=== PATIENT | female | born 1940 | race Caucasian/White ===

== ENCOUNTER 2018-03-13 17:40 | Inpatient (IN) | payer MEDICARE, MEDICAID ==
[~2018-03-13] VITALS: Ht 160 cm; Wt 62.5 kg
[~2018-03-13 17:40] MED LIST: ACETAMINOPHEN-1 EAC1 PO; ARICEPT 5 MG TAB5 MG PO; CALCIUM 500 +1 EAC5 PO; EPITOL200 MG PO; REMERON15 MG PO; VITAMIN D2000 UNIT PO
[2018-03-13 17:42] VITALS: BP 113/87
[2018-03-13 18:43] LABS: HEMATOCRIT 34.4 % (37.0-47.0); HEMOGLOBIN 11.5 gm/dL (12.0-15.0); MCH 32.1 pg (26.0-34.0); MCHC 33.5 g/dL (28.0-37.0); MCV 95.8 fL (80.0-100.0); MPV 8.6 fl. (7.2-11.1); NUCLEATED RBCS 0 /100WBC; PLATELET COUNT* 292 thou/uL (150-400); RBC 3.59 mil/uL (4.20-5.00); WBC 18.5 thou/uL (4.0-11.0)
[2018-03-13 18:52] LABS: ANION GAP 8 mmol/L (7-16); BUN 18 mg/dL (7-18); CALCIUM 8.7 mg/dL (8.5-10.1); CHLORIDE 104 mmol/L (98-107); CO2 29 mmol/L (21-32); GLUCOSE 136 mg/dL (70-99); INR 1.1; POTASSIUM 3.5 mmol/L (3.5-5.1); SODIUM 141 mmol/L (136-145)
[2018-03-13 19:02] LABS: ALBUMIN 2.8 g/dL (3.4-5.0); ALKALINE PHOSPHATASE 119 U/L (46-116); LIPASE 50 U/L (73-393); NT-PRO BRAIN NAT PEPTIDE 1622 pg/mL (<300); SGOT 17 U/L (15-37); SGPT 12 U/L (30-65); TOTAL BILIRUBIN 0.5 mg/dL (<0.1-1.0); TOTAL PROTEIN 7.8 g/dL (6.4-8.2); TROPONIN-I LEVEL <0.06 ng/mL (<0.06)
[2018-03-13 19:05] LABS: ABSOLUTE LYMPHOCYTES 0.6 thou/uL (0.8-5.3); ABSOLUTE NEUTROPHILS 17.9 thou/uL (1.6-8.1); ATYPICAL LYMPHS 1 %; PLATELET ESTIMATE ADEQUATE
[2018-03-13 19:11] LABS: INFLUENZA A ANTIGEN None Detected (None Detect); INFLUENZA B ANTIGEN None Detected (None Detect)
[2018-03-13 19:32] LABS: URINE BLOOD NEGATIVE (Negative); URINE CLARITY CLEAR; URINE COLOR YELLOW; URINE GLUCOSE-RANDOM NEGATIVE (Negative); URINE KETONES NEGATIVE (Negative); URINE LEUKOCYTES-REFLEX NEGATIVE (Negative); URINE NITRITE-REFLEX NEGATIVE (Negative); URINE PROTEIN TRACE (Negative); URINE SPECIFIC GRAVITY 1.025 (1.005-1.030); URINE UROBILINOGEN 0.2 E.U./dl (0.2-1.0)
[2018-03-13 19:46] LABS: ICTOTEST (BILI CONFIRMATORY) Negative (Negative); URINE BILIRUBIN 2+ (Negative)
[2018-03-13] MEDS ORDERED: CARBAMAZEPINE200 M2 PO (20:00)
[2018-03-13] MEDS ORDERED: ARICEPT 5 MG TAB5 MG PO (20:01)
[2018-03-13] MEDS ORDERED: VITAMIN B-1100 M1 (20:02)
[2018-03-13] MEDS ORDERED: TYLENOL EXTRA500 MG (20:02)
[2018-03-13] MEDS ORDERED: ALENDRONATE SOD35 MG (20:02)
[2018-03-13] MEDS ORDERED: OMEPRAZOLE 20 M20 M1 (20:03)
[2018-03-13] MEDS ORDERED: SEROQUEL 25 MG25 M1 (20:03)
[2018-03-13] MEDS ORDERED: ENSURE PLUS237 ML (20:03)
[2018-03-13] MEDS ORDERED: MELATONIN3 MG (20:04)
[2018-03-13] MEDS ORDERED: ROBITUSSIN LON118 ML (20:04)
[2018-03-13] MEDS ORDERED: TUMS (20:04)
[2018-03-13] MEDS ORDERED: ATIVAN0.5 MG (20:05)
[2018-03-13] MEDS ORDERED: CELEXA20 MG (20:05)
[2018-03-13] MEDS ORDERED: IPRAT-ALBUT 0.5-3 ML (20:06)
[2018-03-13] MEDS ORDERED: KLOR-CON 1010 MEQ (20:06)
[2018-03-13 21:30] VITALS: BP 164/80
[2018-03-13 22:05] VITALS: BP 153/52
[2018-03-13 23:56] LABS: PHOSPHORUS* 2.8 mg/dL (2.5-4.9)
[2018-03-14 04:00] VITALS: BP 106/52
--- NOTE | 2018-03-14 05:07 | NUR ---
ASSUMED CARE OF PT AT 2140. PT IS CONFUSED. PT IS ALSO NONVERBAL. PT IS SCORING FOR SEPSIS. NOTIFIED. PT RECIEVING ANTIBIOTICS. NO SIGNS OF PAIN. PT RECIEVED TYLENOL FOR PAIN. PT IS IN SINUS RYTHM ON THE TELEMETRY. PT IS RESTING COMFORTABLY IN BED. RESPIRATIONS ARE EVEN AND NONLABORED. WILL CONTINUE TO MONITOR PT.
[2018-03-14 08:00] VITALS: BP 107/63
--- NOTE | 2018-03-14 09:53 | NUR ---
ORDERS RECEIVED FOR EVAL AND TREAT. PT IS RESIDENT OF LTC AT [facility]. PT IS NON VERBAL. PT WITH SEVERE DEMENTIA. PT IS A FULL CARE PATIENT AT THE [facility] REQUIRING FULL ASSIST FOR ALL ADLS. PT IS UNABLE TO FOLLOW ANY COMMANDS. UPON THERAPY ATTEMPTING EVAL PT WAS UNABLE TO FOLLOW ONE STEP COMMANDS, VOCALIZATIONS WERE ONLY NON SENSE WORDS AND BABBLES. PT COULD NOT ENGAGE IN MEANINGFUL ACTIVITY. DUE TO PLOF BEING DEPENDENT AND SEVERE DEMENTIA NO SKILLED OT IS CURRENTLY INDICATED AND PT IS UNABLE TO PARTICIPATE IN COMPLETE EVALUATION SHE IS DEPENDENT FOR SELF CARES. PT IS CURRENTLY AT BASELINE FUNCTION FOR ADLS.
--- NOTE | 2018-03-14 10:46 | EKG ---
[place] [address] ELECTROCARDIOGRAM REPORT Name: KODY SHEFFIELD Room: [address] ADM IN .R.#: [id number] Admission: 03/13/18 Attend Phys: Jessica Bull MD Discharge: Date of : 36 Report #: [id number] THIS REPORT FOR: //name// [facility] ED Test Date: 2018-03-13 Test Time: 17:57:18 Pat Name: KODY SHEFFIELD Department: Room: [facility] Gender: F Ad Operations Associate: MS : 1940 Requested By: Chao Perez Order Number: [id number] MD: Artis Mtz Measurements Intervals [place] Rate: 99 P: 49 TN: 120 QRS: 73 QRSD: 83 T: 58 QT: 349 QTc: 448 Interpretive Statements Sinus rhythm Artifact in lead(s) I,III,aVL,aVF,V1,V2 Compared to ECG 11/21/2015 16:57:17 No significant changes Electronically Signed On 03-14-2018 10:46:33 DEALER ACCOUNTS INVESTIGATOR by Artis Mtz [email or web address] <ELECTRONICALLY SIGNED> By: Artis Mtz MD, FACC 03/14/18 1046 1757 1757 Artis Mtz MD, [facility] /EPI
[2018-03-14 11:34] VITALS: BP 82/60
--- NOTE | 2018-03-14 13:44 | NUR ---
PT SPOKE WITH SON WHO WAS PRESENT IN ROOM WITH PATIENT; PROVIDED PT WITH INFORMATION REGARDING PT FUNCTIONAL STATUS SECONDARY TO PT NON VERBAL WITH SEVERE DEMENTIA; PT UNABLE TO FOLLOW SIMPLE COMMANDS; PT WAS SPEAKING FRAGMENTED WORDS AND STATEMENTS WHILE HOLDING A BABY DOLL; SON STATES PT IS DEPENDENT WITH ALL ASPECTS OF MOBILITY; PT REQUIRES A SETLLA LIFT FOR TRANSFERS OOB TO WHEELCHAIR IN WHICH SHE IS UNABLE TO MANAGE HERSELF AND IS PUSHED THROUGH FACILITY; SON STATES PT CAN GET AGITATED OR UPSET AT TIMES WITH NEW ENVIRONMENTS AND IS UNABE TO FOLLOW DIRECTIONS; PT ED PT SON ON PT ROLE IN HOSPITAL SETTING; PT UNABLE TO PARTICIPATE IN ATTEMPTED PT EVALUATION.
--- NOTE | 2018-03-14 14:31 | NUR ---
Pt has severe dementia and is non verbal. LTC resident at [facility] and can return at [facility]. Pt is total care, requires a geri for transfers. Pt [place]. Goal is to return to [facility] at [place], following.
[2018-03-14 16:00] VITALS: BP 150/59
--- NOTE | 2018-03-14 19:21 | NUR ---
I ASSUMED CARE OF THE PATIENT AT 0700. SHE IS ALERT AND ORIENTED X4 AND IS BEDFAST. BED IS IN THE LOW LOCKED POSITION AND CALL LIGHT IS IN REACH. HOURLY ROUNDING WAS COMPLETED AND PATIENT NEEDS WERE MET. PAIN IS DENIED. PATIENT HAD SOME ATIVAN TO HELP WITH AGGITATION. SHE HAS BEEN ' HER BABY' ALL DAY. MRSA SWAB WAS COLLECTED AND SENT TO LAB. SHE WAS TURNED EVERY 2 HOURS. DEL CID WAS PLACED AFTER SHE WAS BLADDER SCANNED AND HAD RETENTION. SHE TAKES HER OXYGEN OFF AND IT NEEDS TO BE PUT BACK ON MULTIPLE TIMES. WILL CONTINUE TO MONITOR.
[2018-03-14 23:11] VITALS: BP 115/50; BP 138/53
[2018-03-15] VITALS: BP 162/52
--- NOTE | 2018-03-15 02:03 | NUR ---
ASSUMED CARE OF PT AT 1900. PT IS CONFUSED. VSS. PERRLA. NO SIGNS OF PAIN. TEMP IS SLIGHTLY ELEVATED. PT IS IN SINUS RYTHM ON THE TELEMETRY. PT IS A Q2 TURN. PT IS SLEEPING QUIETLY IN BED. RESPIRATIONS ARE EVEN AND NONLABORED. WILL CONTINUE TO MONITOR PT.
[2018-03-15 04:00] VITALS: BP 159/70
[2018-03-15 04:56] LABS: ABSOLUTE LYMPHOCYTES 0.7 thou/uL (0.8-5.3); ABSOLUTE MONOCYTES 0.8 thou/uL (0.0-1.2); BASOPHILS 0.3 %; EOSINOPHILS 0.1 %; HEMATOCRIT 28.6 % (37.0-47.0); HEMOGLOBIN 9.7 gm/dL (12.0-15.0); LYMPHOCYTES 5.4 %; MCH 32.4 pg (26.0-34.0); MCHC 33.8 g/dL (28.0-37.0); MCV 95.9 fL (80.0-100.0); MPV 8.7 fl. (7.2-11.1); NUCLEATED RBCS 0 /100WBC; PLATELET COUNT* 230 thou/uL (150-400); POLYS 88.2 %; RBC 2.99 mil/uL (4.20-5.00); RDW-CV 13.1 % (10.5-14.5); WBC 13.6 thou/uL (4.0-11.0)
[2018-03-15 05:04] LABS: CALCIUM 8.1 mg/dL (8.5-10.1); CREATININE 0.8 mg/dL (0.6-1.3); MAGNESIUM 1.7 mg/dL (1.8-2.4)
[2018-03-15 05:11] LABS: POTASSIUM 2.5 mmol/L (3.5-5.1)
[2018-03-15 08:00] VITALS: BP 143/57
[2018-03-15 11:50] VITALS: BP 157/79
[2018-03-15 15:36] VITALS: BP 151/80
[2018-03-15 16:36] LABS: BE -1.8 mmol/L (-2 to +3); PCO2 26.8 mmHg (35.0-45.0); pH 7.497 (7.340-7.450)
[2018-03-15 16:39] LABS: PO2 55.6 mmHg (75.0-100.0)
--- NOTE | 2018-03-15 18:41 | NUR ---
ROSA RESTING IN BED. SOME ATTEMPTS TO VERBALIZE TODAY WITH VERY LIMITED ABILITY. PATIENT HAS REMAINED TACHYPNEIC TODAY WITH RESPIRATIONS OF 25-35 PER MINUTE TODAY. MD NOTIFIED AND BLOOD GASES OBTAINED. REPORTED TO MD AND ORDERS FOR LASIX AND ATIVAN ALONG WITH CURRENT BNP RECEIVED. ALSO IV FLUIDS TO BE PLACED ON HOLD UNTIL RESULTS OF BNP ARE OBTAINED AND REPORTED TO DR LIMON. MEJIA GALINDO COMPLETD FOR PATIENT SAFETY. Q2H TURNS COMPLETED.
[2018-03-15 20:10] VITALS: BP 155/63
[2018-03-16] VITALS: BP 179/70
[2018-03-16 04:00] VITALS: BP 106/55
[2018-03-16 04:41] LABS: HEMATOCRIT 33.3 % (37.0-47.0); HEMOGLOBIN 10.9 gm/dL (12.0-15.0); MCH 31.7 pg (26.0-34.0); MCHC 32.8 g/dL (28.0-37.0); MCV 96.7 fL (80.0-100.0); MPV 8.6 fl. (7.2-11.1); RBC 3.44 mil/uL (4.20-5.00); RDW-CV 13.3 % (10.5-14.5); WBC 19.1 thou/uL (4.0-11.0)
--- NOTE | 2018-03-16 05:07 | NUR ---
PT CARE ASSUMED AT 1930. SAT DECREASED TO 89%, CONNECTED IN 6L HFNC. PT IS TACHYPNEIC AND AGITATED, INFORMED, MEDICATION GIVEN PER EMAR. CALL LIGHT WITHIN REACH AND BED IN LOW POSITION. PT IS NON VERBAL. HOURLY ROUNDING DONE FOR PT SAFETY.
[2018-03-16 05:12] LABS: CALCIUM 8.6 mg/dL (8.5-10.1); CREATININE 0.9 mg/dL (0.6-1.3); MAGNESIUM 1.8 mg/dL (1.8-2.4); TOTAL BILIRUBIN 0.8 mg/dL (<0.1-1.0)
[2018-03-16 05:51] LABS: ALBUMIN 2.1 g/dL (3.4-5.0)
[2018-03-16 05:53] LABS: POTASSIUM 2.9 mmol/L (3.5-5.1)
[2018-03-16 08:00] VITALS: BP 165/77
[2018-03-16 12:11] VITALS: BP 150/59
--- NOTE | 2018-03-16 15:56 | NUR ---
Faxed clinical info to [facility] LTC in case Pt is ready to dc over the weekend. p:[phone] f:[phone]
[2018-03-16 16:00] VITALS: BP 168/72
--- NOTE | 2018-03-16 16:55 | NUR ---
I have reviewed the documentation by ALEJANDRO MEEHAN from TODAY and I concur with it. JENNIE ARANGO
--- NOTE | 2018-03-16 18:52 | NUR ---
patinet resting in bed. still tahypneic. q2hour turns. nonverbal. patinet now npo as a result of ST evaluation. vital signs otherwise stable. hourly rounding completd for patient safety.
[2018-03-16 20:10] VITALS: BP 150/68
[2018-03-17] VITALS: BP 132/53
[2018-03-17 04:00] VITALS: BP 183/72
--- NOTE | 2018-03-17 05:09 | NUR ---
PT CARE ASSUMED AT 1930. SAT MAINTAINED IN 6L HFNC. CALL LIGHT WITHIN REACH AND BED IN LOW POSITION. PT IS NON-VERBAL. AWAKE, NON RESPONSIVE AND ANXIOUS AT TIMES. SLEPT ON AND OFF THROUGHOUT THE NIGHT. HOURLY ROUNDING DONE FOR PT SAFETY.
[2018-03-17 05:13] LABS: HEMATOCRIT 32.8 % (37.0-47.0); HEMOGLOBIN 10.9 gm/dL (12.0-15.0); MCH 31.9 pg (26.0-34.0); MCHC 33.3 g/dL (28.0-37.0); MCV 95.7 fL (80.0-100.0); MPV 8.6 fl. (7.2-11.1); RBC 3.43 mil/uL (4.20-5.00); RDW-CV 13.2 % (10.5-14.5); WBC 18.5 thou/uL (4.0-11.0)
[2018-03-17 05:22] LABS: CALCIUM 8.7 mg/dL (8.5-10.1); CREATININE 1.1 mg/dL (0.6-1.3)
[2018-03-17 08:00] VITALS: BP 146/76
--- NOTE | 2018-03-17 11:27 | NUR ---
PT IS DEPENDENT FOR ALL ASPECTS OF CARE, UNABLE TO ANSWER QUESTIONS OR MEANINGFULLY PARTICIPATE. PT HAS LIMITED REHAB POTENTIAL. OT COLLABORATED WITH FAMILY WHO IS IN AGREEMENT. LEELEE OT
[2018-03-17 12:00] VITALS: BP 138/96
--- NOTE | 2018-03-17 13:28 | NUR ---
PT ALERT, NONVERBAL. TELE TRACKIN SINUS ARRHYTHMIA/TACH RATES 100'S. VITALS OTHERWISE STABLE. PT TURNED/REPOSITIONED Q2H. DEL CID TO DD WITH ADEQUATE UO. MULTIPLE VISITIORS THIS SHIFT. EDUCATED ON SAFETY AND PLAN OF CARE. PLEASE SEE ASSESSMENT FOR ADDITIONAL INFORMATION. WILL CONTINUE TO MONITOR
[2018-03-17 16:36] VITALS: BP 168/65
--- NOTE | 2018-03-17 16:50 | NUR ---
PT TO UNIT AT APPROX 1600 THIS SHIFT. PT IS ALERT AND ORIENTED. C/O HEADACHE AND WORSENING BLURRED VISION. TELE TRACKING NSR AND ALL VSS ON ROOM AIR. EDUCATED ON SAFETY AND PLAN OF CARE. PLEASE SEE ASSESSMENT FOR ADDITIONALINFORMATION. WILL CONT TO MONITOR
[2018-03-17 20:00] VITALS: BP 145/74
[2018-03-18] VITALS (8 sets, daily range): BP systolic 131–184; BP diastolic 68–88
[2018-03-18 05:23] LABS: HEMATOCRIT 34.4 % (37.0-47.0); HEMOGLOBIN 11.4 gm/dL (12.0-15.0); MCV 96.8 fL (80.0-100.0); MPV 8.9 fl. (7.2-11.1); NUCLEATED RBCS 0 /100WBC; RBC 3.55 mil/uL (4.20-5.00); RDW-CV 13.3 % (10.5-14.5); WBC 26.8 thou/uL (4.0-11.0)
[2018-03-18 05:37] LABS: ALBUMIN 1.9 g/dL (3.4-5.0); CALCIUM 8.5 mg/dL (8.5-10.1); CREATININE 1.1 mg/dL (0.6-1.3); MAGNESIUM 1.9 mg/dL (1.8-2.4); POTASSIUM 3.7 mmol/L (3.5-5.1); TOTAL BILIRUBIN 0.6 mg/dL (<0.1-1.0); TOTAL PROTEIN 6.9 g/dL (6.4-8.2)
[2018-03-18 05:47] LABS: PLATELET COUNT* 444 thou/uL (150-400)
--- NOTE | 2018-03-18 07:02 | NUR ---
PT CARE ASSUMED AT 1930. SAT DECREASED TO 85%, O2 INCREASED TO 10L HFNC, SATURATION RUNNING AT 92%, PT SOUNDS WET, RR-30'S. INFORMED NO ORDERS RECIEVED. PT IS CONFUSED, UNINTELLIGIBLE WORDS. PT IS AGITATED, MEDICATION GIVEN PER EMAR.
[2018-03-18 07:03] LABS: ABSOLUTE LYMPHOCYTES 0.5 thou/uL (0.8-5.3); ABSOLUTE MONOCYTES 0.8 thou/uL (0.0-1.2); ABSOLUTE NEUTROPHILS 25.5 thou/uL (1.6-8.1); ATYPICAL LYMPHS 1 %
[2018-03-18 07:04] LABS: PLATELET ESTIMATE INCREASED; TOXIC GRANULATION 2+
--- NOTE | 2018-03-18 15:16 | NUR ---
PATIENT UP IN ROOM CO DISCOMFORT IN RT FA. DENIES HEADACHE AT THIS TIME. GIVEN HYDRALAZINE FOR DIASTOLE GREATER THAN 110. TAKING PO WELL.
--- NOTE | 2018-03-18 15:21 | NUR ---
PATIENT REMAINS CONFUSED DIFFICULTY SPEAKING. SMILES AND LAUGHS. HAVING PICC PLACED PER DR KOENIG.
--- NOTE | 2018-03-18 16:20 | NUR ---
NOTIFIED TO PLACE A PICC FOR A PATIENT NEEDING ACCESS. ORDER AND CONSENT NOTED. THE PROCEDURE WELL BENIFITS AND RISK OF INFECTION DISCUSSED WITH THE PATIENTS DPOA, ALL QUESTIONS ANSWERED. THE LEFT UPPER ARM BASILIC WAS WIDLEY PATENT. A #5F DOUBLE LUMEN POWER PICC WAS PLACED ON THE 2ND ATTEMPTED PER HOSPITAL POLICY. PATIENT WAS RESTLESS AND ATTEMPTING TO PULL AT STERILE FIELD- VERBALLY REDIRECTED MULTIPLE TIMED. LINE WAS TRIMMED TO 45CM AND ADVANCED WITHOUT DIFFICULTY. LINE CONFIRMED USING SHERLOCK 3CG AT 0CM EXTERNAL. COMMUTATOR UNDERCUTTER NOTIFIED NO CHEST XRAY NEEDED AND CONFIRMATION PLACED IN THE PATIENTS CHART. LINE IS RELEASED FOR USE
[2018-03-18 18:35] LABS: CALCIUM 8.9 mg/dL (8.5-10.1); CREATININE 1.2 mg/dL (0.6-1.3); MAGNESIUM 1.9 mg/dL (1.8-2.4); POTASSIUM 3.9 mmol/L (3.5-5.1)
[2018-03-19 03:45] VITALS: BP 137/65
[2018-03-19 05:07] LABS: ABSOLUTE BASOPHILS 0.2 thou/uL (0.0-0.2); ABSOLUTE MONOCYTES 1.2 thou/uL (0.0-1.2); ABSOLUTE NEUTROPHILS 25.2 thou/uL (1.6-8.1); BASOPHILS 0.8 %; HEMOGLOBIN 10.6 gm/dL (12.0-15.0); LYMPHOCYTES 3.5 %; MCH 31.9 pg (26.0-34.0); MCHC 33.1 g/dL (28.0-37.0); MCV 96.4 fL (80.0-100.0); MONOCYTES 4.5 %; NUCLEATED RBCS 0 /100WBC; PLATELET COUNT* 407 thou/uL (150-400); POLYS 91.2 %; RBC 3.32 mil/uL (4.20-5.00); RDW-CV 13.5 % (10.5-14.5); WBC 27.6 thou/uL (4.0-11.0)
--- NOTE | 2018-03-19 05:11 | NUR ---
PT CARE ASSUMED AT 1930. PT SATTING TO 90-92% IN 14L HFNC, O2 NEED INCREASED, AIR HUNGER PRESENT, TITRATED TO 15L NRB MASK, SATURATION 94% INFORMED PULMONARY, RECEIVED ORDER FOR MEDICATION, GIVEN PER EMAR. CALL LIGHT WITHIN REACH AND BED IN LOW POSITION. HOURLY ROUNDING DONE FOR PT SAFETY. ISOLATION MAINTAIN FOR RVP.
[2018-03-19 05:31] LABS: ALBUMIN 1.9 g/dL (3.4-5.0); CALCIUM 8.3 mg/dL (8.5-10.1); CREATININE 1.3 mg/dL (0.6-1.3); MAGNESIUM 1.9 mg/dL (1.8-2.4); POTASSIUM 3.8 mmol/L (3.5-5.1); TOTAL BILIRUBIN 0.5 mg/dL (<0.1-1.0); TOTAL PROTEIN 6.4 g/dL (6.4-8.2)
[2018-03-19 08:22] VITALS: BP 148/77
--- NOTE | 2018-03-19 08:34 | CON ---
[address] [address] CONSULTATION Name: KODY SHEFFIELD Room: [address] IN .R.#: [id number] Admission: 03/13/18 Attend Phys: Jessica Bull MD Discharge: Date of : 38 Report #: [id number] THIS REPORT FOR: //name// CC: VERONICA physician/PCP Jessica Bull REQUESTING PHYSICIAN: Hospitalist service. INDICATION FOR CONSULTATION: Pulmonary infiltrates/hypoxia. HISTORY OF PRESENT ILLNESS: This is a 77-year-old female. She has a previous extensive history of smoking. The patient now has dementia and she lives at a long-term care facility. The patient has not previously diagnosed with any cardiac or respiratory disease. The patient at this time is admitted with altered mental status and shortness of breath. The patient previously has not been on supplemental oxygen, currently is requiring up to 6 liters nasal oxygen via cannula the patient is keeping in her mouth, which makes it tough to accurately measure O2 saturation. She has been a mouth breather as well. Regardless this oxygen need is new, the patient per the RN had obvious difficulty with swallowing applesauce and put it in her mouth. This is consistent with aspiration. The patient is confused and is unable to provide a further history. PAST MEDICAL HISTORY: Dementia, previous echo showed normal left ventricular ejection fraction. SOCIAL HISTORY: Has an extensive history of smoking in the past. She discontinued 2-3 years ago, I am unable to quantify exactly at this time. She does not carry a previous diagnosis of COPD. ALLERGIES: No known drug allergies. CURRENT MEDICATIONS: List in [facility] reviewed. MEDICATIONS AT THE NURSING FACILITY: Also list in [facility] reviewed. FAMILY HISTORY: The patient is unable to provide family history. PHYSICAL EXAMINATION: GENERAL: She is awake. She is confused. She has a 6 liters nasal cannula in her mouth. She has been saturating in the mid 90s. VITAL SIGNS: Has a pulse of 96 and a blood pressure of 146/79, blood pressure previously was elevated to 183/72. Her respiratory rate is mildly elevated to 22. She has a temperature of 37.0. She had a high-grade fever of 38.3 on 03/15/2018. HEENT: Head is normocephalic and atraumatic. There is no throat erythema. NECK: [place] [address] CONSULTATION Name: KODY SHEFFIELD Malia Room: [address] IN [facility]#: [id number] Admission: 03/13/18 Attend Phys: Jessica Bull MD Discharge: Date of : 38 Report #: [id number] CHEST: Breath sounds bilaterally equal, decreased, expirations are prolonged. There are no added sounds. HEART: Regular, no murmur. ABDOMEN: Soft and nontender. LOWER EXTREMITIES: No edema, no calf tenderness. DIAGNOSTIC DATA: The patient's chest x-rays and labs are in [facility] and these are reviewed. ASSESSMENT AND PLAN: 1. Acute respiratory insufficiency. The patient's history is consistent with pneumonia. There does appear to be a component of aspiration as well. This is the primary etiology of the patient's acute respiratory insufficiency. There, however, appears to be a secondary component of bronchospasm as well. 2. Pulmonary infiltrates/aspiration pneumonia. The patient is on broad spectrum antibiotics including vancomycin, Zosyn and Levaquin. I favor continuing with Zosyn. I would defer to the ID service regarding the other two antibiotics. Recommend obtaining urine for legionella and pneumococcal antigens. The patient's methicillin resistant Staphylococcus aureus swab was negative. At this time, the patient is very high risk for aspiration. I therefore recommend that she be kept n.p.o. until Monday. If the patient is better, then on Monday, I will recommend obtaining a video swallow before considering oral intake. Recommend holding all oral medications and switch any essential oral medications to IV. 3. Bronchospasm/history of smoking. I feel that she has a component of bronchospasm as well. She has not previously been diagnosed with chronic obstructive pulmonary disease, certainly could have an underlying component. She is on DuoNeb, I ordered 3 doses of Solu-Medrol. I will be inclined to reevaluate tomorrow and order more Solu-Medrol. 4. Hypernatremia/hypokalemia/fluid and electrolytes. I doubt that fluid overload is playing a major role in the patient's current presentation. Regardless, I will plan to run her on the drier and grinder tender side. Down the line, I will plan to diurese her, but prior to this, I do recommend that we correct the patient's sodium as well as potassium levels. The patient's potassium is already being replaced. I switched her IV fluids to more dilute D5W to allow a more rapid correction of her sodium level. Once the patient's sodium level is better, I will consider furosemide. In case the patient's respiratory status worsens in the meantime, I may consider increasing the rate of D5W and at the same time giving her furosemide as well. Note, potassium and magnesium replacement is important, this is already being addressed. I recommend that she obtain an echocardiogram as well. 5. Deep venous thrombosis prophylaxis. She is on Lovenox. 6. Gastrointestinal prophylaxis. She is on Protonix. I recommend switching Protonix over to IV as I am recommending complete n.p.o. at this time. [address] [address] CONSULTATION Name: KODY SHEFFIELD Room: [address] IN M.R.#: [id number] Admission: 03/13/18 Attend Phys: Jessica Bull MD Discharge: Date of : 38 Report #: [id number] Thanks for this consultation. <ELECTRONICALLY SIGNED> By: Don Glover MD 03/19/18 0834 1103 [id number] Erazo MD /nt
[2018-03-19 12:24] VITALS: BP 134/62
[2018-03-19 14:13] LABS: BE 0.1 mmol/L (-2 to +3); PCO2 32.6 mmHg (35.0-45.0); pH 7.473 (7.340-7.450)
[2018-03-19 14:17] LABS: PO2 50.6 mmHg (75.0-100.0)
--- NOTE | 2018-03-19 16:07 | 2DMMODE ---
[place] [address] 2 D/M-MODE ECHOCARDIOGRAM Name: KODY SHEFFIELD Room: [address] IN .R.#: [id number] Admission: 03/13/18 Attend Phys: Jessica Bull, Discharge: Date of : 36 Date of Service: 03/19/18 1607 Report #: [id number] THIS REPORT FOR: //name// APPROVED REPORT Study performed: 03/19/2018 14:49:21 EXAM: Comprehensive 2D, Doppler, and color-flow Echocardiogram Patient Location: Bedside BSA: 1.60 HR: 101 bpm BP: 137/65 mmHg Other Information Study Quality: Fair Indications Congestive Heart Failure 2D Dimensions IVSd: 8.68 (7-11mm) LVOT Diam: 20.25 (18-24mm) LVDd: 45.18 mm PWd: 10.76 (7-11mm) Ascending Ao: 24.91 (22-36mm) LVDs: 27.76 (25-40mm) Aortic Root: 23.50 mm Volumes Left Atrial Volume (Systole) LA ESV Index: 18.40 mL/m2 Aortic Valve AoV Peak Franklin.: 0.93 m/s AO Peak Gr.: 3.45 mmHg LVOT Max P.51 mmHg AO Mean Gr.: 1.78 mmHg LVOT Mean P.19 mmHg LVOT Max V: 0.79 m/s AO V2 VTI: 14.79 cm LVOT Mean V: 0.50 m/s BARRETT (VTI): 3.03 cm2 LVOT V1 VTI: 13.91 cm Mitral Valve E/A Ratio: 1.05 MV Decel. Time: 126.39 ms MV E Max Franklin.: 0.90 m/s MV PHT: 36.65 ms MVA (PHT): 6.00 [place]2 [place] [address] 2 D/M-MODE ECHOCARDIOGRAM Name: KODY SHEFFIELD Room: [address] IN .R.#: [id number] Admission: 03/13/18 Attend Phys: Jessica Bull, Discharge: Date of : 36 Date of Service: 03/19/18 1607 Report #: [id number] TDI E/Lateral E': 12.86 E/Medial E': 11.25 Medial E' Franklin.: 0.08 m/s Lateral E' Franklin.: 0.07 m/s Pulmonary Valve PV Peak Franklin.: 0.80 m/s PV Peak Gr.: 2.59 mmHg Tricuspid Valve RAP Estimate: 5.00 mmHg TR Peak Gr.: 39.57 mmHg RVSP: 44.57 mmHg PA Pressure: 44.57 mmHg Left Ventricle The left ventricle is normal size. There is normal left ventricular wall thickness. Left ventricular systolic function is normal. The left ventricular ejection fraction is within the normal range. LVEF is 50-55%. Grade I - abnormal relaxation pattern. Right Ventricle The right ventricle is normal size. The right ventricular systolic function is normal. Atria The left atrium size is normal. The right atrium size is normal. Aortic Valve The aortic valve is normal in structure. No aortic regurgitation is present. There is no aortic valvular stenosis. Mitral Valve There is mitral annular calcification. Mild mitral regurgitation. No evidence of mitral valve stenosis. Tricuspid Valve The tricuspid valve is normal in structure. Mild tricuspid regurgitation. estimated pa pressure 40 mm Hg Pulmonic Valve Pulmonic valve is not well visualized. Trace pulmonic regurgitation[place] [address] 2 D/M-MODE ECHOCARDIOGRAM Name: KODY SHEFFIELD Room: [address] IN [facility]#: [id number] Admission: 03/13/18 Attend Phys: Jessica Bull, Discharge: Date of : 36 Date of Service: 03/19/18 1607 Report #: [id number] The aortic root is normal in size. IVC is normal in size and collapses >50% with inspiration. Pericardium There is no pericardial effusion. <Conclusion> Left ventricular systolic function is normal. The left ventricular ejection fraction is within the normal range. <ELECTRONICALLY SIGNED> By: Artis Mtz MD, FACC 03/19/18 1607 1607 160 Artis Mtz MD, FACC /INF
--- NOTE | 2018-03-19 16:41 | NUR ---
PT IS ALERT AND CAN FOLLOW SIMPLE COMMANDS. PT IS ON 15 LITERS O2 BY NASAL CANNULA. PT WAS PLACED ON BIPAP DUE TO CRITICAL VALUE OF ABG, WHICH WERE RELAYED TO DR. WATSON. RECEIVED ORDERS FOR BIPAP AND RECHECK ABG IN 1 HOUR. PT HAS BIPAP ON CURRENTLY AWAITING NEW ABG VALUES. PT HAS SOME AGITATION TO BIPAP, ANXIETY MEDS GIVEN TO HELP. PT VANC DOSAGE CHANGED DUE TO CRITICAL LEVEL, LOWER DOSAGE ORDERED. DR. WATSON NOTIFIED AND VERIFIED RECEIVING MESSAGE. PT SLEPT MOST OF SHIFT. SPEECH WILL PLAN TO SEE PT TOMORROW, UNABLE DUE TO NEED FOR BIPAP AT THE TIME. FALL RISK PRECAUTIONS IN PLACE. HOURLY ROUNDING COMPLETED. WILL CONTINUE TO MONITOR. CURRENTLY ON DROPLET PERCAUTIONS WHILE AWAITING RVP.
[2018-03-19 17:12] VITALS: BP 133/77
[2018-03-19 17:59] LABS: BE -0.2 mmol/L (-2 to +3); PCO2 33.7 mmHg (35.0-45.0); pH 7.456 (7.340-7.450)
[2018-03-19 18:02] LABS: PO2 155.5 mmHg (75.0-100.0)
[2018-03-19 20:00] VITALS: BP 132/57
[2018-03-20 00:38] VITALS: BP 145/66
[2018-03-20 04:00] VITALS: BP 134/45
--- NOTE | 2018-03-20 05:27 | NUR ---
PATIENT SQUIRMING/WHIMPERING DURING BEGINNING OF SHIFT, SEEMED UNCOMFORTABLE AND IN PAIN. ATIVAN/MORPHIN ADMINISTERED FOR COMFORT X2. PATIENT SLEEPING AND BREATHING BETTER FOLLOWING MEDICATIONS. ON BIPAP SINCE 399, ON 15L O2 PER NC BEFORE THAT DUE TO ACTIVELY REMOVING BIPAP OFF. SPO2 >95% THROUGHOUT SHIFT, USING HER ACCESSORY MUSCLES TO BREATH. Q2 TURNS FOR SKIN INTEGRITY. TEMP 99.0 F, THEN 101.1 F AXILLARY ON ASSESSMENT, TYLENOL RECTAL ADMINISTERED, TEMP DOWN TO 98.8 F AT THIS TIME.
[2018-03-20 05:28] LABS: HEMATOCRIT 31.1 % (37.0-47.0); HEMOGLOBIN 10.1 gm/dL (12.0-15.0); MCH 31.9 pg (26.0-34.0); MCHC 32.4 g/dL (28.0-37.0); MCV 98.4 fL (80.0-100.0); MPV 9.3 fl. (7.2-11.1); RBC 3.16 mil/uL (4.20-5.00); RDW-CV 13.7 % (10.5-14.5); WBC 23.2 thou/uL (4.0-11.0)
[2018-03-20 06:22] LABS: ALBUMIN 1.7 g/dL (3.4-5.0); CALCIUM 8.5 mg/dL (8.5-10.1); CREATININE 1.1 mg/dL (0.6-1.3); MAGNESIUM 2.1 mg/dL (1.8-2.4); POTASSIUM 3.8 mmol/L (3.5-5.1); TOTAL BILIRUBIN 0.4 mg/dL (<0.1-1.0)
[2018-03-20 08:00] VITALS: BP 140/78
[2018-03-20 12:14] VITALS: BP 133/69
[2018-03-20 13:01] LABS: BE -0.8 mmol/L (-2 to +3); PCO2 35.7 mmHg (35.0-45.0)
--- NOTE | 2018-03-20 13:27 | NUR ---
ORDERS RECEIVED AND CHART REVIEWD. UPON MY ARRIVAL PATIENT IS ON BI-PAP. TENDS TO SIT HERSELF UP AND LAYS DOWN WITH HER EYES CLOSED. PATIENT IS UNABLE TO AWAKEN AND FOLLOW INSTRUCTIONS. PT HAS SEVERE DEMENTIA AND REQUIRES TOTAL CARE WITH A MECHANICL LIFTING. SHE IS NON-AMBULATORY. SKILLED P.T. SERVICES ARE NOT APPROPRIATE A RESULT OF PATIENT BEING AT HER BASE-LINE MOBILITY STATUS AND BEING UNABLE TO FOLLOW INSTRUCTIONS. PT WILL THEREFORE BE DC'ED FROM SKILLED P.T. SERVICES. DG [place], MPT
[2018-03-20 13:28] LABS: CREATININE 1.1 mg/dL (0.6-1.3); POTASSIUM 4.3 mmol/L (3.5-5.1)
[2018-03-20 15:51] VITALS: BP 139/65
[2018-03-20 20:00] VITALS: BP 169/89
--- NOTE | 2018-03-20 23:46 | NUR ---
PT'S HEART RATE 150-180 AT 1999. 12 LEAD EKG OBTAINED, DR FRANCI WU. PT RESTLESS AND ATTEMPTING TO PULL OF BIPAP AT THAT TIME. PT GIVEN PRN ATIVAN AND MORPHINE. PT'S HEART RATE DECREASED TO 80-90 SINUS RHYTHM ON MONITOR. RECIEVED CALL BACK FROM DR KOROMA. RELATED EVENTS AND RECIEVED PRN ORDER FOR METOPROLOL. PT'S DAUGHTER KENAN CALLED TO DISCUSS MAKING PT COMFORTABLE AND STOPPING TREATMENT. INFORMED HER SHE COULD DISCUSS THOSE OPTIONS WITH DR WATSON DURING DAY SHIFT. DAUGHTER STATED SHE HAD SPOKE WITH BROTHER AND WAS GOING TO BE IN CONTACT WITH HER SISTER IN [place] TO DISCUSS OPTIONS OTHER THAN CONTINUING TREATMENT. INFORMED DAUGHTER THAT COMFORT CARE WOULD INVOLVE REMOVING BIPAP. STOPPING IV ANTIBIOTICS AND ALL SCHEDULED MEDICATIONS. INFORMED DAUGHTER PAIN MEDICINES WOULD THEN BE GIVEN TO PROMOTE COMFORT UNTIL SUCH TIME PT WOULD PASS AWAY. DAUGHTER STATED SHE HAD BEEN TOLD BY PHYSICANS HER MOTHER WAS NOT GETTING BETTER AND SHE FELT IT WAS TIME TO START GOING TOWARD HOSPICE CARE.
[2018-03-21] VITALS: BP 138/72
[2018-03-21 04:00] VITALS: BP 126/69
--- NOTE | 2018-03-21 05:03 | NUR ---
PT CONTINUED ON BIPAP. PT MAINTAINING O2 SAT > 94%. HEART RATE WAS 150-170 EARLY IN SHIFT. PT EXTREMELY RESTLESS AT THAT TIME. HEART RATE RETURNED TO 70-80'S AFTER RECIEVING PRN ATIVAN AND MORPHINE. ORDERS FOR PRN LOPRESSOR OBTAINED. PT NON VERBAL, DOES NOT FOLLOW COMMANDS. FAMILY DISCUSSING COMFORT CARE. WILL CONTINUE PLAN OF CARE.
[2018-03-21 05:33] LABS: HEMATOCRIT 29.8 % (37.0-47.0); HEMOGLOBIN 9.7 gm/dL (12.0-15.0); MCHC 32.7 g/dL (28.0-37.0); MCV 97.8 fL (80.0-100.0); MPV 9.5 fl. (7.2-11.1); RBC 3.04 mil/uL (4.20-5.00); RDW-CV 14.2 % (10.5-14.5); WBC 20.4 thou/uL (4.0-11.0)
[2018-03-21 05:48] LABS: CALCIUM 8.3 mg/dL (8.5-10.1); CREATININE 1.1 mg/dL (0.6-1.3); MAGNESIUM 2.2 mg/dL (1.8-2.4)
[2018-03-21 06:00] LABS: BE -0.6 mmol/L (-2 to +3); PCO2 39.6 mmHg (35.0-45.0); pH 7.402 (7.340-7.450)
[2018-03-21 06:04] LABS: PO2 48.4 mmHg (75.0-100.0)
[2018-03-21 07:07] LABS: ADENOVIRUS Negative (Negative); INFLUENZA A Negative (Negative); INFLUENZA B Negative (Negative); METAPNEUMOVIRUS Negative (Negative); PARAINFLUENZA 1 Negative (Negative); PARAINFLUENZA 2 Negative (Negative); PARAINFLUENZA 3 Negative (Negative); RHINOVIRUS Negative (Negative); RSV A Negative (Negative); RSV B Negative (Negative)
--- NOTE | 2018-03-21 07:15 | NUR ---
CHANGE OF SHIFT BEDSIDE REPORT PATIENT SEEN AT BEDSIDE, IN BED AND RESTING ASSUMED PATIENT CARE
[2018-03-21 08:00] VITALS: BP 152/84
[2018-03-21 12:00] VITALS: BP 141/64
--- NOTE | 2018-03-21 15:55 | EKG ---
[place] [address] ELECTROCARDIOGRAM REPORT Name: KODY SHEFFIELD Room: [address] ADM IN M.R.#: [id number] Admission: 03/13/18 Attend Phys: Jessica Bull MD Discharge: Date of : 36 Report #: [id number] THIS REPORT FOR: //name// [facility] Test Date: 2018-03-20 Test Time: 20:15:41 Pat Name: KODY SHEFFIELD Department: Room: [address] Gender: F Project Manager/Design Manager: TORRI : 1940 Requested By: Jessica Bull Order Number: [id number] Reading MD: Jose Chong Measurements Intervals [place] Rate: 124 P: 106 NM: 159 QRS: 49 QRSD: 107 T: 102 QT: 312 QTc: 448 Interpretive Statements Sinus tachycardia Multiple premature complexes Anteroseptal infarct, age indeterminate Baseline wander in lead(s) II,III,aVR,aVF,V1,V6 Compared to ECG 03/13/2018 17:57:18 Myocardial infarct finding now present Electronically Signed On 03-21-2018 15:55:23 RESIDENTIAL SERVICE TECHNICIAN by Jose Chong [email or web address] <ELECTRONICALLY SIGNED> By: Jose Chong MD, [facility] 03/21/18 1555 14 14 Jose Chong MD, [facility] /EPI
[2018-03-21 20:00] VITALS: BP 142/83
--- NOTE | 2018-03-22 04:31 | NUR ---
ASSUMED CARE OF PT AFTER REPORT AT 1930. PT NON VERBAL, DOES NOT FOLLOW COMMANDS. VSS. PHSYICAL ASSESSMENT COMPLETED AND CHARTED. ON COMFORT CARE. PT ON HIGH FLOW NC AT 13L WITH 91% O2 SAT. PT WITH DEL CID TO DEPENDENT DRAIN. EDEMA ON LEFT ARM NOTED. KEPT ARM ELEVATED WITH A PILLOW. PICC LINE TO LEFT UPPER ARM PATENT & INTACT-ABLE TO DRAW BLOOD ON BOTH PORTS. PTS CONTINUES TO MOAN/GROAN EVEN WITH MORPHINE Q1-DR GUZMAN INFORMED WITH NEW ORDERS. WILL CONTINUE TO MONITOR.
[2018-03-22 05:23] LABS: HEMATOCRIT 27.5 % (37.0-47.0); HEMOGLOBIN 9.1 gm/dL (12.0-15.0); MCH 32.4 pg (26.0-34.0); MCV 98.3 fL (80.0-100.0); MPV 9.9 fl. (7.2-11.1); RBC 2.8 mil/uL (4.20-5.00); RDW-CV 13.9 % (10.5-14.5); WBC 17.1 thou/uL (4.0-11.0)
[2018-03-22 05:44] LABS: ALBUMIN 1.8 g/dL (3.4-5.0); CALCIUM 8.2 mg/dL (8.5-10.1); CREATININE 1.1 mg/dL (0.6-1.3); MAGNESIUM 2.1 mg/dL (1.8-2.4); POTASSIUM 3.5 mmol/L (3.5-5.1); TOTAL BILIRUBIN 0.5 mg/dL (<0.1-1.0); TOTAL PROTEIN 5.7 g/dL (6.4-8.2)
--- NOTE | 2018-03-22 16:02 | NUR ---
Cm spoke with dtr, dtr in agreement with initating a GIP referral. Order received, referral sent to [facility]. [facility] to coordinate with dtr to arrange a time to come and assess Pt. Following.
--- NOTE | 2018-03-22 18:30 | NUR ---
ASSUMED CARE OF PATIENT AT THIS TIME. REPORT RECEIVED FROM DRE TOPETE. PATIENT SETTLED TO ROOM. PATIENT IS RESTING, UNRESPONSIVE. FAMILY AT BEDSIDE AND DENY ANY NEEDS AT THIS TIME.
--- NOTE | 2018-03-22 19:03 | NUR ---
assumed pt care at 0730, full assesment done as charted. pt disoriented, drowsy, non verbal, moans with movement. VSS, /ms status, pt on comfort measures, meds given per mar for comfort. hospice consult placed, pt to have hospice while in the hospital. family updated. pt turned q2 hr, augustine catheter dd, no bm today, left arm swollen, elevated on pillows, PICC line flushes and asperates blood. Fall precautions maintained, DNR maintained. Pt transfered to room 305 at approx 1815, report given to Coleen TOPETE.
--- NOTE | 2018-03-23 05:11 | NUR ---
PT HAS BEEN KEPT COMFORTABLE WITH PRN DOSES OF IV MORPHINE EVERY 30 MINUTES- 1 1/2 HOURS APART AND IV ATIVAN EVERY 3 HOURS. FAMILY AT BEDSIDE ATTENTIVE TO NEEDS UNTIL MIDNIGHT AND THEN WENT HOME TO SLEEP. PT TURNED AND REPOSITIONED PER FAMILYS REQUEST FOR COMFORT AND EASE OF BREATHING. O2 14L HI TENA NC. FINGERS CYANOTIC. DEL CID DRAINING SMALL AMOUNT YELLOW URINE. SCOPALAMINE PATCH IN PLACE BEHIND L EAR. RHAND SL AND MANOHAR PICC SL. L ARM AND HAND EDEMATOUS-ELEVEATED ON PILLOW. ORAL CARE GIVEN PRN. PT NONRESPONSIVE, OCC MOANS OR APPEARS RESTLESS-MEDICATED PRN. FREQUENT OBSERVATION OVERNIGHT. DNR.
[2018-03-23 08:00] VITALS: BP 106/48
[2018-03-23] MEDS ORDERED: ATIVAN1 MG PO (08:43)
[2018-03-23] MEDS ORDERED: MORPHINE 4MG/ML SYRI IVPUSH (08:43)
[2018-03-23] MEDS ORDERED: IPRAT-ALBUT 0.5-3 ML INH (08:43)
[2018-03-23] MEDS ORDERED: TRANSDERM-SCOP1 EACH TRANSDERM (08:44)
--- NOTE | 2018-03-23 13:26 | NUR ---
PATIENT DISCHARGING TO INPATIENT HOSPICE WITH [facility]
== END 2018-03-22 15:15 | disposition hospice, inpatient (51) | DRG 177 ==
LOC: M.ERS 17:40 → M.TBA-ER 20:11 → M.2W 20:11 → M.3W 03-22 18:31 → M.2W 03-22 18:31
PROVIDERS: Emergency Medicine; Family Medicine; Internal Medicine Critical Care Medicine; Internal Medicine Infectious Disease; ADMIT Internal Medicine
PROC: 02HV33Z Insertion of Infusion Device into Superior Vena Cava, Percutaneous Approach (ICD-10-PCS; 2018-03-18)
PROC: 5A09357 Assistance with Respiratory Ventilation, Less than 24 Consecutive Hours, Continuous Positive Airway Pressure (ICD-10-PCS; principal; 2018-03-19)
PROC: 5A09357 Assistance with Respiratory Ventilation, Less than 24 Consecutive Hours, Continuous Positive Airway Pressure (ICD-10-PCS; 2018-03-20)
DX: J15.6 Pneumonia due to other Gram-negative bacteria (principal); J96.01 Acute respiratory failure with hypoxia; E87.0 Hyperosmolality and hypernatremia; G93.40 Encephalopathy, unspecified; R65.10 Systemic inflammatory response syndrome (SIRS) of non-infectious origin without acute organ dysfunction; J69.0 Pneumonitis due to inhalation of food and vomit; F03.90 Unspecified dementia, unspecified severity, without behavioral disturbance, psychotic disturbance, mood disturbance, and anxiety; E87.6 Hypokalemia; F17.210 Nicotine dependence, cigarettes, uncomplicated; J44.9 Chronic obstructive pulmonary disease, unspecified; J84.10 Pulmonary fibrosis, unspecified; Z66 Do not resuscitate; Z51.5 Encounter for palliative care; I50.9 Heart failure, unspecified; Z79.899 Other long term (current) drug therapy